=== PATIENT | male | born 1940 | race Caucasian/White ===

== ENCOUNTER 2016-12-31 14:08 | Emergency (ER) | payer MEDICARE, MEDICAID ==
--- NOTE | 2017-01-19 15:43 | ER ---
ADMIT: 12/31/2016 RM/LOC: ER [facility] MR#: [id number] [address] [id number] SERA LEWSHELLEY COLBY S [address] [address] Emergency Room Report SEX: M AGE: 76 : 1940 DATE: 12/31/2016 This 76-year-old gentleman who moved up here from [place] approximately 2 months ago. While in [place], he had been on oxygen 24x7 for COPD. Apparently when he moved up here, had some issue with billing and he was not able to continue with his oxygen. He comes to the Emergency Department merely asking for help in obtaining oxygen. Denies any complaints. RT was consulted. The patient did meet oxygen requirements, subsequently obtained per the patient. DISCHARGE DIAGNOSIS: O2-dependent chronic obstructive pulmonary disease. Olegario Patel MD/ [facility] JOB #: [id number] CC: Olegario Patel MD, Attending Physician UNKNOWN, Family Physician
== END 2016-12-31 16:15 | disposition home or self-care (01) ==
LOC: ER 14:08
DX: J44.9 Chronic obstructive pulmonary disease, unspecified (principal); I11.0 Hypertensive heart disease with heart failure; I50.9 Heart failure, unspecified; Z99.81 Dependence on supplemental oxygen; Z85.51 Personal history of malignant neoplasm of bladder; Z79.899 Other long term (current) drug therapy